=== PATIENT | male | born 1950 | race Caucasian/White ===

== ENCOUNTER → 2024-10-16 | Outpatient (CLI) | payer MEDICARE ==
[~2024-10-16] MED LIST: APIX5TAB PO; FINA5TAB41 PO; LOSA25TA41 PO; OMEP40CA21 PO; SIMV-43 PO; TOPI-97 PO
--- NOTE | 2024-10-16 15:28 | HMCIMG ---
ULTRASOUND VENOUS DOPPLER, BILATERAL LOWER EXTREMITIES INDICATION: Bilateral lower extremity pain and swelling TECHNIQUE: Routine grayscale and color Doppler ultrasound of the bilateral lower extremity veins performed. COMPARISON: No priors. FINDINGS: Near occlusive/occlusive echogenic intraluminal thrombus demonstrated throughout the entire left lower extremity venous system, including left greater saphenous vein, with sparing of the left posterior tibial vein. The demonstrated veins of the right lower extremity including the common femoral vein, femoral vein, and popliteal vein are associated with normal compressibility, augmentation, and flow. IMPRESSION: Near occlusive/occlusive thrombus involving the entire left lower extremity venous system with sparing of the left posterior tibial vein.
== END | disposition home or self-care (01) ==
LOC: RAH 13:11
PROVIDERS: ATTEND Internal Medicine
DX: M79.662 Pain in left lower leg (principal); R06.02 Shortness of breath; I26.99 Other pulmonary embolism without acute cor pulmonale
CPT/HCPCS: 93970